=== PATIENT | male | born 1945 | race Caucasian/White ===

== ENCOUNTER → 2016-06-07 | Outpatient (CLI) | payer OTHER ==
--- NOTE | 2016-06-07 09:52 | DIAGNOSTIC IMAGING REPORT ---
RIGHT KNEE 4 VIEWS HISTORY: Right knee pain. RIGHT KNEE DJD Right COMPARISON: Right knee 03/11/2013. FINDINGS: There is no fracture or dislocation. Soft tissues are unremarkable. No knee effusion. Mild cartilage space narrowing within the medial and patellofemoral compartments. Tiny marginal osteophytes at the patella. Unremarkable left knee. IMPRESSION: Mild right knee osteoarthritis, unchanged. Electronically signed by: Walter Naranjo M.D. 06/07/2016 9:51 AM Dictated Date/Time: 06/07/2016 9:49 AM
== END | disposition home or self-care (01) ==
LOC: C.RDSM 14:53
PROVIDERS: ATTEND Physician Assistant
DX: M17.31 Unilateral post-traumatic osteoarthritis, right knee (principal)

== ENCOUNTER → 2017-01-14 | Outpatient (CLI) | payer OTHER ==
--- NOTE | 2017-01-14 11:09 | DIAGNOSTIC IMAGING REPORT ---
L HAND MIN 3 VIEWS HISTORY: 71 years-old Male Left hand pain acute left-sided hand pain status post injury of the third metacarpal. Remote trapped: Injury COMPARISON: None available TECHNIQUE: 3 views of the left hand FINDINGS: Mild radiocarpal, multidigit metacarpophalangeal and interphalangeal with moderate first carpometacarpal osteoarthritis. There is a punctate bone fragment noted along the medial margin of the third metacarpal head may reflect remote fracture fragment or fragmented osteophyte. There is no acute fracture or dislocation. Metallic density foreign bodies measuring up to 2 mm are noted within the volar soft tissues of the distal index finger. IMPRESSION: 1. Degenerative changes of the hand and wrist without acute fracture or dislocation. 2. Metallic density foreign bodies of the volar aspect distal index finger. The above report was generated using voice recognition software. It may contain grammatical, syntax or spelling errors. Electronically signed by: Stephon Dickerson M.D. 01/14/2017 11:08 AM Dictated Date/Time: 01/14/2017 11:06 AM
== END | disposition home or self-care (01) ==
LOC: C.RDSM 14:01
PROVIDERS: ATTEND Physician Assistant
DX: M79.642 Pain in left hand (principal)